=== PATIENT | female | born 1935 | race Caucasian/White ===

== ENCOUNTER 2017-12-07 16:06 | Emergency (ER) | payer MEDICARE, OTHER ==
[~2017-12-07] VITALS: Ht 167.6 cm; Wt 95.3 kg
[2017-12-07] MEDS ORDERED: HYDRALAZINE HCL 20 MG/ML VIAL IV STA (16:52)
[2017-12-07 16:53] LABS: BASOPHILS # (AUTO) 0.1 (0.0-0.1); BASOPHILS % 0.5 % (0.0-1.0); EOSINOPHILS # (AUTO) 0.1 (0.0-0.4); EOSINOPHILS % 1.1 % (0.0-6.0); HEMATOCRIT 36.6 % (34.2-44.1); HEMOGLOBIN 11.9 g/dL (12.0-16.0); LYMPHOCYTES # (AUTO) 2.7 (1.0-3.2); LYMPHOCYTES % 26.3 % (18.0-39.1); MEAN CORPUSCULAR HEMOGLOBIN 29.1 pg (28-32); MEAN CORPUSCULAR HGB CONC 32.5 g/dL (31-35); MEAN CORPUSCULAR VOLUME 89.5 fL (81-99); MONOCYTES # (AUTO) 0.8 (0.2-0.8); NEUTROPHILS # (AUTO) 6.5 (2.1-6.9); NEUTROPHILS % 63.5 % (38.7-80.0); PLATELET COUNT 329 x10e3/uL (140-360); RED BLOOD COUNT 4.09 x10e6/uL (3.6-5.1); RED CELL DISTRIBUTION WIDTH 15.3 % (11.7-14.4)
[2017-12-07] MEDS ORDERED: SODIUM CHLORIDE 0.9% 500ML 500 ML IV ONE (17:00)
[2017-12-07 17:06] LABS: ALBUMIN 3.8 g/dL (3.5-5.0); ANION GAP 12.5 mmol/L (8-16); CALCIUM 10.3 mg/dL (8.4-10.2); CREATININE, SERUM 1.05 mg/dL (0.57-1.11); POTASSIUM 3.5 mmol/L (3.5-5.1)
[2017-12-07 17:13] LABS: CREATINE KINASE MB 2.5 ng/mL (0-5.0)
--- NOTE | 2017-12-07 18:32 | Diagnostic Imaging Report ---
PROCEDURE: A single AP view of the chest. COMPARISON: None. INDICATIONS: PALPITATIONS FINDINGS: Lines/tubes: Left upper chest dual-lead cardiac device, with lead distal tips projecting in the right atrium and right ventricle.. Lungs: The grossly Pleura: There is no pleural effusion or pneumothorax. Heart and mediastinum: Cardiac silhouette is unremarkable. Pulmonary vasculature is normal. Bones: No acute bony abnormality. IMPRESSION: 1. No acute cardiopulmonary abnormalities. Yaya Romero M.D. Dictated by: Yaya Romero M.D. on 12/07/2017 at 18:35 Electronically approved by: Yaya Romero M.D. on 12/07/2017 at 18:35
== END 2017-12-07 20:17 | disposition home or self-care (01) ==
LOC: ER 16:06
DX: R00.2 Palpitations (principal)
CPT/HCPCS: 36415; 71045; 80053; 82550; 82553; 83880; 84484; 85025; 93005; 99284; J0360; J7040

== ENCOUNTER → 2017-12-27 | Outpatient (CLI) | payer MEDICARE, OTHER ==
[2017-12-27 13:14] LABS: BASOPHILS % 0.4 % (0.0-1.0); EOSINOPHILS # (AUTO) 0.1 (0.0-0.4); HEMATOCRIT 32.8 % (34.2-44.1); HEMOGLOBIN 10.4 g/dL (12.0-16.0); LYMPHOCYTES # (AUTO) 2.7 (1.0-3.2); LYMPHOCYTES % 25.4 % (18.0-39.1); MEAN CORPUSCULAR HEMOGLOBIN 29.1 pg (28-32); MEAN CORPUSCULAR HGB CONC 31.7 g/dL (31-35); MEAN CORPUSCULAR VOLUME 91.9 fL (81-99); MONOCYTES # (AUTO) 0.9 (0.2-0.8); MONOCYTES % 8.8 % (4.4-11.3); NEUTROPHILS # (AUTO) 6.7 (2.1-6.9); NEUTROPHILS % 63.9 % (38.7-80.0); PLATELET COUNT 302 x10e3/uL (140-360); RED BLOOD COUNT 3.57 x10e6/uL (3.6-5.1); RED CELL DISTRIBUTION WIDTH 15.1 % (11.7-14.4)
[2017-12-27 13:27] LABS: INR 1.04; PROTHROMBIN TIME 12.8 seconds (11.9-14.5)
[2017-12-27 13:33] LABS: ALBUMIN 3.5 g/dL (3.5-5.0); ALBUMIN/GLOBULIN RATIO 0.9 (0.8-2.0); ANION GAP 12.9 mmol/L (8-16); CALCIUM 9.2 mg/dL (8.4-10.2); CREATININE, SERUM 1.01 mg/dL (0.57-1.11); POTASSIUM 3.9 mmol/L (3.5-5.1)
== END | disposition home or self-care (01) ==
LOC: RAD 12:43
PROVIDERS: ATTEND Family Medicine
DX: R60.0 Localized edema (principal); L03.119 Cellulitis of unspecified part of limb
CPT/HCPCS: 36415; 80053; 85025; 85610; 93971

== ENCOUNTER 2018-02-25 15:49 | Observation (INO) | payer MEDICARE, OTHER ==
[~2018-02-25] VITALS: Ht 167.6 cm; Wt 95.3 kg
[2018-02-25] MEDS ORDERED: METOPROLOL SUCC50 MG PO (16:27)
[2018-02-25] MEDS ORDERED: LOSARTAN-HCTZ1 EAC1 PO (16:29)
[2018-02-25] MEDS ORDERED: LASIX40 MG PO (16:29)
[2018-02-25] MEDS ORDERED: POTASSIUM CHLO20 ME1 PO (16:29)
[2018-02-25] MEDS ORDERED: ASPIRIN ENTERI325 MG PO (16:29)
[2018-02-25 16:59] LABS: BASOPHILS % 0.4 % (0.0-1.0); EOSINOPHILS # (AUTO) 0.1 (0.0-0.4); HEMATOCRIT 35.4 % (34.2-44.1); HEMOGLOBIN 11.4 g/dL (12.0-16.0); LYMPHOCYTES # (AUTO) 2.5 (1.0-3.2); LYMPHOCYTES % 24.4 % (18.0-39.1); MEAN CORPUSCULAR HEMOGLOBIN 29.2 pg (28-32); MEAN CORPUSCULAR HGB CONC 32.2 g/dL (31-35); MEAN CORPUSCULAR VOLUME 90.8 fL (81-99); MONOCYTES # (AUTO) 0.8 (0.2-0.8); MONOCYTES % 7.3 % (4.4-11.3); NEUTROPHILS # (AUTO) 6.9 (2.1-6.9); NEUTROPHILS % 66.3 % (38.7-80.0); PLATELET COUNT 370 x10e3/uL (140-360); RED CELL DISTRIBUTION WIDTH 13.9 % (11.7-14.4)
[2018-02-25 17:05] LABS: INR 0.97; PARTIAL THROMBOPLASTIN TIME 29.6 seconds (23.8-35.5); PROTHROMBIN TIME 12.1 seconds (11.9-14.5)
[2018-02-25 17:14] LABS: ALBUMIN 3.6 g/dL (3.5-5.0); ALBUMIN/GLOBULIN RATIO 0.9 (0.8-2.0); ANION GAP 15.4 mmol/L (8-16); CALCIUM 9.7 mg/dL (8.4-10.2); CREATININE, SERUM 0.99 mg/dL (0.57-1.11); POTASSIUM 3.4 mmol/L (3.5-5.1)
[2018-02-25 17:20] LABS: CREATINE KINASE MB 2.3 ng/mL (0-5.0)
--- NOTE | 2018-02-25 17:21 | Diagnostic Imaging Report ---
EXAMINATION: CHEST 2 VIEWS INDICATION: Tachycardia COMPARISON: Chest x-ray 12/07/2017 FINDINGS: PA and lateral views TUBES and LINES: Pacemaker wires terminate in the right atrium and right ventricle and are stable in position. Pacemaker battery pack in the left chest wall is stable in orientation LUNGS: The lungs are diffusely hyperinflated consistent with COPD. There is no evidence of mass, pneumonia or pulmonary edema. PLEURA: No pleural effusion or pneumothorax. Mild eventration of the right diaphragm is stable. HEART AND MEDIASTINUM: The heart is mildly enlarged but stable. The aorta is ectatic. BONES AND SOFT TISSUES: Degenerative changes of the spine are stable. No compression deformities. No focal osseous lesions. Soft tissues are unremarkable. UPPER ABDOMEN: No free air under the diaphragm. IMPRESSION: Stable pulmonary hyperinflation suggestive of COPD. Stable cardiomegaly. No vascular congestion. Signed by: Dr. Glory Mauricio MD on 02/25/2018 5:18 PM
[2018-02-25] MEDS ORDERED: ASPIRIN 81 MG CHEW TAB PO ONE (17:30)
[2018-02-25] MEDS ORDERED: LABETALOL HCL 5 MG/ML 20ML VIAL IV STA ×2 (17:43→18:32)
[2018-02-26 01:46] LABS: CREATINE KINASE MB 1.7 ng/mL (0-5.0)
[2018-02-26 05:58] LABS: CREATINE KINASE MB 1.5 ng/mL (0-5.0)
[2018-02-26 06:14] LABS: CHOL/HDL RATIO 4.2 (3.0-3.6)
[2018-02-26 07:53] VITALS: BP 155/69
[2018-02-26 08:16] VITALS: BP 155/69
[2018-02-26 08:37] LABS: ALANINE AMINOTRANSFERASE 13 IU/L (0-55); ALBUMIN 2.9 g/dL (3.5-5.0); ALKALINE PHOSPHATASE 75 IU/L (40-150); ANION GAP 13.2 mmol/L (8-16); BLOOD UREA NITROGEN 21 mg/dL (7-26); BUN/CREATININE RATIO 24 (6-25); CALCIUM 8.6 mg/dL (8.4-10.2); CARBON DIOXIDE 26 mmol/L (22-29); CHLORIDE 99 mmol/L (98-107); CREATININE, SERUM 0.86 mg/dL (0.57-1.11); EST GLOMERULAR FILTRATION RATE > 60 ML/MIN (60-); GLUCOSE 101 mg/dL (74-118); POTASSIUM 3.2 mmol/L (3.5-5.1); SODIUM 135 mmol/L (136-145)
[2018-02-26 08:41] LABS: CLARITY,URINE CLEAR (CLEAR); COLOR,URINE YELLOW (YELLOW)
[2018-02-26 08:42] LABS: BILIRUBIN,URINE NEGATIVE (NEGATIVE); KETONES,URINE NEGATIVE (NEGATIVE); LEUKOCYTE ESTERASE ,URINE NEGATIVE (NEGATIVE); NITRITE,URINE NEGATIVE (NEGATIVE); PROTEIN,URINE DIPSTICK TRACE (NEGATIVE); URINE UROBILINOGEN 0.2 mg/dL (0.2 - 1)
[2018-02-26 08:50] VITALS: BP 155/69
[2018-02-26 08:50] LABS: BACTERIA,URINE RARE /HPF; EPITHELIAL CELLS,URINE RARE /LPF; RBC,URINE 0-5 /HPF (0-5); WBC,URINE (MAN) 0-5 /HPF (0-5)
[2018-02-26 08:58] LABS: THYROID STIMULATING HORMONE 2.266 uIU/mL (0.350-4.940)
[2018-02-26] MEDS ORDERED: METOPROLOL SUCC25 MG (08:58)
[2018-02-26] MEDS ORDERED: METOPROLOL SUCCINATE 25 MG TAB XL PO SCH (09:00)
[2018-02-26] MEDS ORDERED: POTASSIUM CHLORIDE 20 MEQ TAB CR PO SCH (09:00)
[2018-02-26] MEDS ORDERED: FUROSEMIDE 40 MG TAB PO SCH (09:00)
[2018-02-26] MEDS ORDERED: ASPIRIN 325 MG TAB EC PO SCH (09:00)
[2018-02-26] MEDS ORDERED: POTASSIUM CHLORIDE 20 MEQ TAB CR PO ONE (09:30)
--- NOTE | 2018-02-26 09:31 | Consultation ---
DATE OF CONSULTATION: February 26, 2018 REASON FOR CONSULTATION: Chest pain. HPI: This is a pleasant, 83-year-old female who presented with palpitations. She stated she got out of the shower and was sitting down drying her hair and suddenly she started feeling missed beats, palpitations, dizziness and weakness. She stated that she took her beta wilmar with no relief, and so she decided to come to the emergency room for evaluation. She has a history of CAD with permanent pacemaker and she follows up with a special education tutor in the medical center. She also complained of chest pain on a scale of 4 out of 10 with no radiation. Troponin was negative. EKG showed sinus rhythm with no ST abnormalities. PAST MEDICAL HISTORY: CHF, atrial fibrillation, hypertension and CAD. PAST SURGICAL HISTORY: Permanent pacemaker placement. FAMILY HISTORY: Noncontributory. SOCIAL HISTORY: She lives at home with her . No smoking, no drinking. MEDICATIONS: She was on aspirin, Lasix, losartan with hydrochlorothiazide and metoprolol at home. ALLERGIES: SHE IS NOT ALLERGIC TO ANY MEDICATIONS. REVIEW OF SYSTEMS: Negative except those mentioned above. She was positive for palpitations. PHYSICAL EXAMINATION VITAL SIGNS: Temperature 97, heart rate 60, blood pressure 155/69, respirations 18, oxygen saturation 97% on room air. GENERAL: She is awake, alert and oriented times 3. HEENT: Mucous membrane moist. NECK: Supple. LUNGS: Clear to auscultation. CARDIOVASCULAR: S1 and S2 present. ABDOMEN: Soft. NEUROLOGIC: Intact. EXTREMITIES: With no edema. LABORATORY DATA: Sodium 134, potassium 3.4, chloride 96, CO2 26, BUN 25, creatinine 0.99, glucose . White blood cell 10.3, hemoglobin 11.4, hematocrit 35.4, platelets 370,000, PT 12.1, PTT 29.6, and INR 0.97. IMPRESSION 1. Chest pain. 2. Palpitations. 3. Coronary artery disease with permanent pacemaker. 4. History of atrial fibrillation. 5. Hypertension. PLAN: Troponin was negative x3. She stated she had a cardiac stress test with her special education tutor and everything was normal. Will go ahead and get an echocardiogram to assess the LV and valve function. Potassium was low and has been replaced. Will go ahead and check TSH and get a UA. Will continue her beta wilmar. The palpitations, she stated, resolved. She had a chest x-ray that was showing pulmonary hyperinflation suggestive of COPD. Further cardiac workup pending clinical cause. Thank you for this consultation. Dictated by Patricia Izquierdo NP Job#: [id number] SHANTA
[2018-02-26] MEDS ORDERED: HYDRALAZINE HCL 20 MG/ML VIAL IV ONE (11:00)
[2018-02-26 11:57] VITALS: BP 160/63
[2018-02-26 12:58] VITALS: BP 139/64
--- OUTSIDE RECORDS SUMMARY | 2018-04-14 02:48 | XMS REPORT ---
Author Author [facility] Address Unknown Phone Unavailable Care Team Providers Care Automotive Warranty Administrator Name Role Phone ILEANA JOHNSON Unavailable Unavailable MOLINA JUNE Unavailable Unavailable Problems This patient has no known problems. Allergies, Adverse Reactions, Alerts This patient has no known allergies or adverse reactions. Medications This patient has no known medications. Results Test Description Test Time Test Comments Text Results Atomic Results Result Comments CHEST 2 VIEWS 2018-02-25 17:15:00 [place] [address] Patient Name: JESSIE ERVIN MR #: [id number] : 1935 Age/Sex: 82/F Req #: [id number] Adm Physician: Ordered by: ILEANA JOHNSON MD Report #: [id number] Location: ER Room/Bed: Procedure: [id number] DX/CHEST 2 VIEWS Exam Date: Exam Time: REPORT STATUS: Signed EXAMINATION: CHEST 2 VIEWS INDICATION: Tachycardia COMPARISON: Chest x-ray 12/07/2017 FINDINGS: PA and lateral views TUBES and LINES: Pacemaker wires terminate in the right atrium and right ventricle and are stable in position. Pacemaker battery pack in the left chest wall is stable in orientation LUNGS: The lungs are diffusely hyperinflated consistent with COPD. There is no evidence of mass, pneumonia or pulmonary edema. PLEURA: No pleural effusion or pneumothorax. Mild eventration of the right diaphragm is stable. HEART AND MEDIASTINUM: The heart is mildly enlarged but stable. The aorta is ectatic. BONES AND SOFT TISSUES: Degenerative changes of the spine are stable. No compression deformities. No focal osseous lesions. Soft tissues are unremarkable. UPPER ABDOMEN: No free air under the diaphragm. IMPRESSION: Stable pulmonary hyperinflation suggestive of COPD. Stable cardiomegaly. No vascular congestion. Signed by: Dr. Lisbeth Mauricio MD on 02/25/2018 5:18 PM Dictated By: LISBETH MAURICIO MD 17 Transcribed By: MONICA on 02/25/181717 COPY TO: ILEANA JOHNSON MD CHEST SINGLE (PORTABLE) [place] [address] Patient Name: JESSIE ERVIN MR #: [id number] : 1935 Age/Sex: 82/F Req #: [id number] Adm Physician: Ordered by: MOLINA JUNE MD Report #: [id number] Location: ER Room/Bed: Procedure: [id number] DX/CHEST SINGLE (PORTABLE) Exam Date: 12/07/17 Exam Time: 1750 REPORT STATUS: Signed PROCEDURE: A single AP view of the chest. COMPARISON: None. INDICATIONS: PALPITATIONS FINDINGS: Lines/tubes: Left upper chest dual-lead cardiac device, with lead distal tips projecting in the right atrium and right ventricle.. Lungs: The grossly Pleura: There is no pleural effusion or pneumothorax. Heart and mediastinum: Cardiac silhouette is unremarkable. Pulmonary vasculature is normal. Bones: No acute bony abnormality. IMPRESSION: 1. No acute cardiopulmonary abnormalities. Dianna Romero M.D. Dictated by: Dianna Romero M.D. on 12/07/2017 at 18:35 Electronically approved by: Dianna Romero M.D. on 12/07/2017 at 18:35 Dictated By: DIANNA ROMERO MD 34 Transcribed By: MAYI on 12/07/171834 COPY TO: MOLINA JUNE MD
--- OUTSIDE RECORDS SUMMARY | 2018-04-14 02:48 | XMS REPORT | Continuity of Care Document ---
Author Author [facility] Organization [facility] Address [address] [place] [address] Phone Unavailable Care Team Providers Care Progressive Die Maker Name Role Phone IGNACIO GALVAN MD PCP Insurance Providers Guarantor Alistair Zambranodonald Address [address] [place] [address] Email PTDECLINED Payer [employer] Pos Policy Number [id number] Subscriber's Name Comfort Zambrano Relationship 01 Group Number [id number] Group Name RETIRED Effective Date 04 Payer Medicare A & B Policy Number [id number] Subscriber's Name Jessie Zambrano Relationship 18 Self / Same As Patient Group Number NA Group Name UNEMPLOYED Effective Date 00 Advance Directives Directive Response Recorded Date/Time Does the patient have an advance directive? Yes 12/07/17 5:19pm If yes, is advance directive on file with [facility]? No 12/17/08 8:08pm If not on file with [facility] will patient provide a copy? Yes 12/07/17 5:19pm Do you have a Directive to Physician? No 12/07/17 5:19pm Do you have a Medical Power of Anesthesia Tech? Yes 12/07/17 5:19pm Do you have an out of hospital Do Not Resuscitate Order? No 12/07/17 5:19pm Do you have any special needs we should be aware of? No 12/07/17 5:19pm Do you have a support person here with you today? Yes 12/07/17 5:19pm Did patient receive Notice of Privacy Practices? Yes 12/07/17 5:19pm Did patient receive patient rights and responsibilities? Yes 12/07/17 5:19pm Problems No problem information available. Medications No medication information available. Social History Smoking Status Start Date Stop Date Never Smoker Hospital Discharge Instructions No hospital discharge instruction information available. Plan of Care Discharge Date 12/07/17 8:17pm Disposition HOME, SELF-CARE Condition at Discharge Stable Instructions/Education Provided Hypertension Forms Provided Work/School Excuse Prescriptions See Medication Section Referrals IGNACIO GALVAN MD Order Date: Call for an appointment Address: [address] [place] [id number] Additional Instructions/Education DC HOME FOLLOW UP WITH PCP/MOTOR AND GENERATOR BRUSH MAKER IN 2 DAYS TAKE MEDS DIRECTED RETURN TO THE ER WITH ANY EMERGENT CONDITIONS Functional Status No functional status information available. Allergies, Adverse Reactions, Alerts No allergy information available. Immunizations No immunization information available. Vital Signs Acute Vital Signs Vital Response Date/Time Height 5 ft 6 in 12/07/2017 4:44pm Weight 210 lb 12/07/2017 4:44pm Body Mass Index 33.9 kg/m^2 12/07/2017 4:44pm Results Laboratory Results Test Name Result Units Flags Reference Collection Date/Time Result Date/ Time Comments White Blood Count 10.20 x10e3/uL 4.8-10.8 12/07/2017 4:16pm 12/07/2017 4:54pm Red Blood Count 4.09 x10e6/uL 3.6-5.1 12/07/2017 4:16pm 12/07/2017 4: 54pm Hemoglobin 11.9 g/dL L 12.0-16.0 12/07/2017 4:16pm 12/07/2017 4:54pm Hematocrit 36.6 % 34.2-44.1 12/07/2017 4:16pm 12/07/2017 4:54pm Mean Corpuscular Volume 89.5 fL 81-99 12/07/2017 4:16pm 12/07/2017 4: 54pm Mean Corpuscular Hemoglobin 29.1 pg 28-32 12/07/2017 4:16pm 12/07/2017 4:54pm Mean Corpuscular Hemoglobin Concent 32.5 g/dL 31-35 12/07/2017 4:16pm 12/07/2017 4:54pm Red Cell Distribution Width 15.3 % H 11.7-14.4 12/07/2017 4:16pm 2017 4:54pm Platelet Count 329 x10e3/uL 140-360 12/07/2017 4:16pm 12/07/2017 4: 54pm Neutrophils (%) (Auto) 63.5 % 38.7-80.0 12/07/2017 4:16pm 12/07/2017 4: 54pm Lymphocytes (%) (Auto) 26.3 % 18.0-39.1 12/07/2017 4:1612/07/2017 4: 54pm Monocytes (%) (Auto) 8.0 % 4.4-11.3 12/07/2017 4:1612/07/2017 4: 54pm Eosinophils (%) (Auto) 1.1 % 0.0-6.0 12/07/2017 4:1612/07/2017 4: 54pm Basophils (%) (Auto) 0.5 % 0.0-1.0 12/07/2017 4:1612/07/2017 4:54pm IM GRANULOCYTES % 0.6 % 0.0-1.0 12/07/2017 4:1612/07/2017 4:54pm Neutrophils # (Auto) 6.5 2.1-6.9 12/07/2017 4:1612/07/2017 4:54pm Lymphocytes # (Auto) 2.7 1.0-3.2 12/07/2017 4:1612/07/2017 4:54pm Monocytes # (Auto) 0.8 0.2-0.8 12/07/2017 4:1612/07/2017 4:54pm Eosinophils # (Auto) 0.1 0.0-0.4 12/07/2017 4:1612/07/2017 4:54pm Basophils # (Auto) 0.1 0.0-0.1 12/07/2017 4:16pm 12/07/2017 4:54pm Absolute Immature Granulocyte (auto 0.06 x10e3/uL 0-0.1 12/07/2017 4: 16pm 12/07/2017 4:54pm Sodium Level 137 mmol/L 136-145 12/07/2017 4:16pm 12/07/2017 5:10pm Potassium Level 3.5 mmol/L 3.5-5.1 12/07/2017 4:16pm 12/07/2017 5:10pm Chloride Level 97 mmol/L L 98-107 12/07/2017 4:16pm 12/07/2017 5:10pm Carbon Dioxide Level 31 mmol/L H 22-12/07/2017 4:16pm 12/07/2017 5: 10pm Anion Gap 12.5 mmol/L 8-16 12/07/2017 4:16pm 12/07/2017 5:10pm Blood Urea Nitrogen 25 mg/dL 7-12/07/2017 4:16pm 12/07/2017 5:10pm Creatinine 1.05 mg/dL 0.57-1.11 12/07/2017 4:16pm 12/07/2017 5:10pm BUN/Creatinine Ratio 24 6-25 12/07/2017 4:16pm 12/07/2017 5:10pm Estimat Glomerular Filtration Rate 50 ML/MIN L 60- 12/07/2017 4:16pm 5:10pm Ranges were taken from the National Kidney Disease Education Program and the National Kidney Foundation literature. Reference ranges: 60 or greater: Normal 16-59 (for 3 consecutive months): Chronic kidney disease 15 or less: Kidney failure Glucose Level 112 mg/dL 74-118 12/07/2017 4:16pm 12/07/2017 5:10pm Calcium Level 10.3 mg/dL H 8.4-10.2 12/07/2017 4:16pm 12/07/2017 5:10pm Total Bilirubin 0.3 mg/dL 0.2-1.2 12/07/2017 4:16pm 12/07/2017 5:10pm Aspartate Amino Transf (AST/SGOT) 23 IU/L 5-34 12/07/2017 4:16pm 2017 5:10pm Alanine Aminotransferase (ALT/SGPT) 19 IU/L 0-55 12/07/2017 4:16pm 5:10pm Total Protein 7.8 g/dL 6.5-8.1 12/07/2017 4:16pm 12/07/2017 5:10pm Albumin 3.8 g/dL 3.5-5.0 12/07/2017 4:16pm 12/07/2017 5:10pm Globulin 4.0 g/dL H 2.3-3.5 12/07/2017 4:16pm 12/07/2017 5:10pm Albumin/Globulin Ratio 1.0 0.8-2.0 12/07/2017 4:16pm 12/07/2017 5: 10pm Alkaline Phosphatase 96 IU/L 40-150 12/07/2017 4:16pm 12/07/2017 5: 10pm B-Type Natriuretic Peptide 147.1 pg/mL H 0-100 12/07/2017 4:16pm 2017 5:16pm Creatine Kinase 83 IU/L 29-168 12/07/2017 4:16pm 12/07/2017 5:10pm Creatine Kinase MB 2.50 ng/mL 0-5.0 12/07/2017 4:16pm 12/07/2017 5: 14pm Troponin I 0.009 ng/mL 0-0.300 12/07/2017 4:16pm 12/07/2017 5:14pm Procedures No procedure information available. Encounters Encounter Location Arrival/Admit Date Discharge/Depart Date Attending Provider Departed Emergency Room [facility] 12/07/17 4:06pm 8:17pm MOLINA JUNE MD
--- OUTSIDE RECORDS SUMMARY | 2018-04-14 02:48 | XMS REPORT | Clinical Summary ---
Author Author [facility] Organization [facility] Address Unknown Phone Unavailable Care Team Providers Care Small Products Assembler Name Role Phone Asked, Pcp PCP Unavailable Allergies No Known Allergies Current Medications Prescription Sig. Disp. Refills Start End Date Status Date potassium chloride 11/04/19 Active (K-DUR) 20 MEQ CR tablet 17 furosemide (LASIX) 40 mg 11/04/19 Active tablet 17 cholecalciferol, vitamin Take by mouth Active D3, (VITAMIN D3) 1,000 unit tablet biotin 10,000 mcg capsule Take by mouth Active Active Problems Problem Noted Date Colon polyp Diverticulosis Family History Relation Name Status Comments Father Mother Social History Tobacco Use Types Packs/Day Years Used Date Never Smoker Alcohol Use Drinks/Week oz/Week Comments Yes Sex Assigned at Date Recorded Not on file Last Filed Vital Signs Not on file Plan of Treatment Health Maintenance Due Date Last Done Comments SHINGRIX VACCINE (#1) 1985 ZOSTER VACCINE 1995 PNEUMOCOCCAL 2000 POLYSACCHARIDE VACCINE AGE 65 AND OVER PNEUMOCOCCAL-13 2000 INFLUENZA VACCINE 02/09/2018 Results Not on fileafter 02/24/2017 Insurance Payer Benefit Subscriber ID Type Phone Address Plan / Group MEDICARE MEDICARE xxxxxxxxxx Medicare [place], [place] PART A AND B AETNA AETNA xxxxxxxxxx HMO HMO,POS,EP O, [facility]
--- OUTSIDE RECORDS SUMMARY | 2018-04-14 02:51 | XMS REPORT | Clinical Summary ---
Author Author [facility] Organization [facility] Address Unknown Phone Unavailable Care Team Providers Care Master Hearth Technician Name Role Phone Asked, Pcp PCP Unavailable [...]
--- OUTSIDE RECORDS SUMMARY | 2018-04-14 04:02 | XMS REPORT | Continuity of Care Document ---
Author Author [facility] Organization [facility] Address [address] [place] [address] Phone Unavailable Care Team Providers Care Escort Service Attendant Name Role Phone IGNACIO GALVAN MD PCP Insurance Providers Guarantor Juan ManuelAlistairdonald Address [address] [place] [address] Email PTDECLINED Payer Aetna Pos Policy Number [id number] Subscriber's Name Comfort Zambrano Relationship 01 Group Number [id number] Group Name RETIRED Effective Date 04 Payer Medicare A & B Policy Number [id number] Subscriber's Name Jessie Zambrano Relationship 18 Self / Same As Patient Group Number NA Group Name UNEMPLOYED Effective Date 00 Advance Directives Directive Response Recorded Date/Time Does the patient have an advance directive? Yes 02/26/18 8:50am If yes, is advance directive on file with [facility]? No 02/26/18 8:50am If not on file with [facility] will patient provide a copy? Yes 02/26/18 8:50am Do you have a Directive to Physician? No 02/25/18 5:56pm Do you have a Medical Power of [place]? Yes 02/25/18 5:56pm Do you have an out of hospital Do Not Resuscitate Order? No 02/25/18 5:56pm Do you have any special needs we should be aware of? No 02/25/18 5:56pm Do you have a support person here with you today? Yes 02/25/18 5:56pm Did patient receive Notice of Privacy Practices? Yes 02/25/18 5:56pm Did patient receive patient rights and responsibilities? Yes 02/25/18 5:56pm Problems Medical Problem Onset Date Status Chest pain Unknown Medications Current Home Medications Medication Dose Units Route Directions Days Qty Instructions Start Date Aspirin (Aspirin Enteric Coated) 325 Mg Tabec 325 Mg Oral Daily 30 Tab Furosemide (Lasix) 40 Mg Tablet 40 Mg Oral Daily 30 Tab Losartan/Hydrochlorothiazide (Losartan-Hctz 100-25 Mg Tab) 1 Each Tablet 1 Tab Oral Daily Metoprolol Succinate 25 Mg Tab.er.24h Potassium Chloride 20 Meq Tab.er.prt 1 Tab Oral Daily Past Home Medications Medication Directions Ordered Status Metoprolol Succinate 50 Mg Tab.er.24h, 100 Mg Oral Daily Discontinued Social History Smoking Status Start Date Stop Date Unknown if ever smoked Hospital Discharge Instructions No hospital discharge instruction information available. Plan of Care Discharge Date 02/26/18 4:00pm Disposition ADMITTED Condition at Discharge Stable Instructions/Education Provided Hypertension Forms Provided Work/School Excuse Prescriptions See Medication Section Functional Status Query Response Date Recorded Assistive Devices None February 26, 2018 8:50am Ambulation Ability Independent February 26, 2018 8:50am Toileting Ability Independent February 26, 2018 8:50am Allergies, Adverse Reactions, Alerts No known allergies. Immunizations No immunization information available. Vital Signs Acute Vital Signs Vital Response Date/Time Temperature (Fahrenheit) 97.6 degrees F (97.6 - 99.5) 02/26/2018 12:58pm Pulse Pulse Rate (adult) 60 bpm (60 - 90) 02/26/2018 12:58pm Respiratory Rate 18 bpm (12 - 24) 02/26/2018 12:58pm Blood Pressure 139/64 mm Hg 02/26/2018 12:58pm Height 5 ft 6 in 02/25/2018 4:05pm Weight 210 lb 02/25/2018 4:05pm Body Mass Index 33.9 kg/m^2 02/26/2018 8:50am Results Laboratory Results Test Name Result Units Flags Reference Collection Date/Time Result Date/ Time Comments B-Type Natriuretic Peptide 147.1 pg/mL H 0-100 12/07/2017 4:16pm 2017 5:16pm White Blood Count 10.39 x10e3/uL 4.8-10.8 02/25/2018 4:36pm 02/25/2018 5:05pm Red Blood Count 3.90 x10e6/uL 3.6-5.1 02/25/2018 4:36pm 02/25/2018 5: 05pm Hemoglobin 11.4 g/dL L 12.0-16.0 02/25/2018 4:36pm 02/25/2018 5:05pm Hematocrit 35.4 % 34.2-44.1 02/25/2018 4:36pm 02/25/2018 5:05pm Mean Corpuscular Volume 90.8 fL 81-99 02/25/2018 4:36pm 02/25/2018 5: 05pm Mean Corpuscular Hemoglobin 29.2 pg 28-32 02/25/2018 4:36pm 02/25/2018 5:05pm Mean Corpuscular Hemoglobin Concent 32.2 g/dL 31-35 02/25/2018 4:36pm 02/25/2018 5:05pm Red Cell Distribution Width 13.9 % 11.7-14.4 02/25/2018 4:36pm 2017 5:05pm Platelet Count 370 x10e3/uL H 140-360 02/25/2018 4:36pm 02/25/2018 5: 05pm Neutrophils (%) (Auto) 66.3 % 38.7-80.0 02/25/2018 4:36pm 02/25/2018 5: 05pm Lymphocytes (%) (Auto) 24.4 % 18.0-39.1 02/25/2018 4:36pm 02/25/2018 5: 05pm Monocytes (%) (Auto) 7.3 % 4.4-11.3 02/25/2018 4:36pm 02/25/2018 5: 05pm Eosinophils (%) (Auto) 1.0 % 0.0-6.0 02/25/2018 4:36pm 02/25/2018 5: 05pm Basophils (%) (Auto) 0.4 % 0.0-1.0 02/25/2018 4:36pm 02/25/2018 5:05pm IM GRANULOCYTES % 0.6 % 0.0-1.0 02/25/2018 4:36pm 02/25/2018 5:05pm Neutrophils # (Auto) 6.9 2.1-6.9 02/25/2018 4:36pm 02/25/2018 5:05pm Lymphocytes # (Auto) 2.5 1.0-3.2 02/25/2018 4:36pm 02/25/2018 5:05pm Monocytes # (Auto) 0.8 0.2-0.8 02/25/2018 4:36pm 02/25/2018 5:05pm Eosinophils # (Auto) 0.1 0.0-0.4 02/25/2018 4:36pm 02/25/2018 5:05pm Basophils # (Auto) 0.0 0.0-0.1 02/25/2018 4:36pm 02/25/2018 5:05pm Absolute Immature Granulocyte (auto 0.06 x10e3/uL 0-0.1 02/25/2018 4: 36pm 02/25/2018 5:05pm Prothrombin Time 12.1 seconds 11.9-14.5 02/25/2018 4:36pm 02/25/2018 5: 05pm Prothromb Time International Ratio 0.97 02/25/2018 4:36pm 2017 5:05pm Oral Anticoagulant Therapy INR Values: 1. Low Intensity Therapy 1.5 - 2.0 2. Moderate Intensity Therapy 2.0 - 3.0 3. High Intensity Therapy(1) 2.5 - 3.5 4. High Intensity Therapy(2) 3.0 - 4.0 5. Panic Value INR > 5.0 Activated Partial Thromboplast Time 29.6 seconds 23.8-35.5 02/25/2018 4: 36pm 02/25/2018 5:05pm Urine Color YELLOW YELLOW 02/25/2018 4:20pm 02/26/2018 8:42am Urine Clarity CLEAR CLEAR 02/25/2018 4:20pm 02/26/2018 8:42am Urine Specific [place] 1.010 1.010-1.025 02/25/2018 4:20pm 2017 8:42am Urine pH 6 5 - 7 02/25/2018 4:20pm 02/26/2018 8:42am Urine Leukocyte Esterase NEGATIVE NEGATIVE 02/25/2018 4:20pm 2017 8:42am Urine Nitrite NEGATIVE NEGATIVE 02/25/2018 4:20pm 02/26/2018 8:42am Urine Protein TRACE H NEGATIVE 02/25/2018 4:20pm 02/26/2018 8:42am Urine Glucose (UA) NEGATIVE NEGATIVE 02/25/2018 4:20pm 02/26/2018 8: 42am Urine Ketones NEGATIVE NEGATIVE 02/25/2018 4:20pm 02/26/2018 8:42am Urine Urobilinogen 0.2 mg/dL 0.2 - 1 02/25/2018 4:20pm 02/26/2018 8: 42am Urine Bilirubin NEGATIVE NEGATIVE 02/25/2018 4:20pm 02/26/2018 8: 42am Urine Blood NEGATIVE NEGATIVE 02/25/2018 4:20pm 02/26/2018 8:50am Urine WBC 0-5 /HPF 0-5 02/25/2018 4:20pm 02/26/2018 8:50am Urine RBC 0-5 /HPF 0-5 02/25/2018 4:20pm 02/26/2018 8:50am Urine Bacteria RARE /HPF NONE 02/25/2018 4:20pm 02/26/2018 8:50am Urine Epithelial Cells RARE /LPF NONE 02/25/2018 4:20pm 02/26/2018 8: 50am Sodium Level 135 mmol/L L 136-145 02/26/2018 5:00am 02/26/2018 8:39am Potassium Level 3.2 mmol/L L 3.5-5.1 02/26/2018 5:00am 02/26/2018 8: 39am Chloride Level 99 mmol/L 98-107 02/26/2018 5:00am 02/26/2018 8:39am Carbon Dioxide Level 26 mmol/L 22-29 02/26/2018 5:00am 02/26/2018 8: 39am Anion Gap 13.2 mmol/L 8-16 02/26/2018 5:00am 02/26/2018 8:39am Blood Urea Nitrogen 21 mg/dL 7-26 02/26/2018 5:00am 02/26/2018 8:39am Creatinine 0.86 mg/dL 0.57-1.11 02/26/2018 5:00am 02/26/2018 8:39am BUN/Creatinine Ratio 24 6-25 02/26/2018 5:00am 02/26/2018 8:39am Estimat Glomerular Filtration Rate > 60 ML/MIN 60- 02/26/2018 5:00am 8:39am Ranges were taken from the National Kidney Disease Education Program and the National Kidney Foundation literature. Reference ranges: 60 or greater: Normal 16-59 (for 3 consecutive months): Chronic kidney disease 15 or less: Kidney failure Glucose Level 101 mg/dL 74-118 02/26/2018 5:00am 02/26/2018 8:39am Calcium Level 8.6 mg/dL 8.4-10.2 02/26/2018 5:00am 02/26/2018 8:39am Total Bilirubin 0.2 mg/dL 0.2-1.2 02/26/2018 5:00am 02/26/2018 8:39am Aspartate Amino Transf (AST/SGOT) 17 IU/L 5-34 02/26/2018 5:00am 2017 8:39am Alanine Aminotransferase (ALT/SGPT) 13 IU/L 0-55 02/26/2018 5:00am 8:39am Total Protein 5.8 g/dL # L 6.5-8.1 02/26/2018 5:00am 02/26/2018 8:39am Albumin 2.9 g/dL L 3.5-5.0 02/26/2018 5:00am 02/26/2018 8:39am Globulin 2.9 g/dL 2.3-3.5 02/26/2018 5:00am 02/26/2018 8:39am Albumin/Globulin Ratio 1.0 0.8-2.0 02/26/2018 5:00am 02/26/2018 8: 39am Alkaline Phosphatase 75 IU/L 40-150 02/26/2018 5:00am 02/26/2018 8: 39am Triglycerides Level 196 MG/DL H 0-149 02/26/2018 5:00am 02/26/2018 6: 18am Cholesterol Level 197 MD/DL 0-199 02/26/2018 5:00am 02/26/2018 6:18am Less than 200 mg/dL Low Risk 201 - 239 mg/dL Borderline Risk 240 mg/dl and greater High Risk LDL Cholesterol 111 MG/DL 60-130 02/26/2018 5:00am 02/26/2018 6:18am HDL Cholesterol 47 MG/DL 40-60 02/26/2018 5:00am 02/26/2018 6:18am Cholesterol/HDL Ratio 4.2 H 3.0-3.6 02/26/2018 5:00am 02/26/2018 6: 18am Creatine Kinase 81 IU/L 29-168 02/26/2018 5:00am 02/26/2018 5:55am Creatine Kinase MB 1.50 ng/mL 0-5.0 02/26/2018 5:00am 02/26/2018 6: 00am Troponin I 0.034 ng/mL 0-0.300 02/26/2018 5:00am 02/26/2018 6:00am Free Thyroxine Index 2.2016 1.4-3.8 02/26/2018 5:00am 02/26/2018 9: 12am Thyroxine (T4) 7.10 ug/dL 4.5-10.9 02/26/2018 5:00am 02/26/2018 9:12am Our current method for Total T4 is not recommended for use as the only marker for evaluating patients for thyroid disorders. Triiodothyronine (T3) Uptake 31.01 % 22.5-37.0 02/26/2018 5:00am 2017 9:12am Thyroid Stimulating Hormone (TSH) 2.266 uIU/mL 0.350-4.940 02/26/2018 5: 00am 02/26/2018 9:12am Procedures Procedure Status Date Provider(s) X-ray of chest, two views Active 02/25/18 ILEANA JOHNSON MD Encounters Encounter Location Arrival/Admit Date Discharge/Depart Date Attending Provider Departed Emergency Room [facility] 02/25/18 3:49pm 4:00pm RADHA ALFRED MD Registered Clinic [facility] 12/27/17 12:43pm IGNACIO GALVAN MD Departed Emergency Room [facility] 12/07/17 4:06pm 8:17pm MOLINA JUNE MD
--- OUTSIDE RECORDS SUMMARY | 2018-04-14 04:02 | XMS REPORT | Clinical Summary ---
Author Author [facility] Organization [place] [facility] Address Unknown Phone Unavailable Care Team Providers Care International Account Executive Name Role Phone Asked, Pcp PCP Unavailable [...] INFLUENZA VACCINE 02/09/2018 Results Not on fileafter 03/02/2017 Insurance Payer Benefit Subscriber ID Type Phone Address Plan / Group MEDICARE MEDICARE xxxxxxxxxx Medicare [place], [place] PART A AND B AETNA AETNA xxxxxxxxxx HMO HMO,POS,EP O, MC/EC
== END 2018-02-26 16:00 | disposition home or self-care (01) ==
LOC: ER 15:49 → ERHOLD 17:31 → INTOOBSV 17:31 → UNDOADMOB 18:06 → ERHOLD 18:06 → ER 02-26 16:00
PROVIDERS: ADMIT Family Medicine; ATTEND Family Medicine
DX: R00.2 Palpitations (principal); R07.2 Precordial pain; I48.91 Unspecified atrial fibrillation; I50.9 Heart failure, unspecified; Z95.0 Presence of cardiac pacemaker; I25.10 Atherosclerotic heart disease of native coronary artery without angina pectoris; I11.0 Hypertensive heart disease with heart failure; E87.6 Hypokalemia
CPT/HCPCS: 36415; 71046; 80053; 80061; 81001; 82550; 82553; 84436; 84443; 84479; 84484; 85025; 85610; 85730; 93005; 93306; 99284; G0378 ×2; J3490

== ENCOUNTER 2019-04-05 11:25 | Inpatient (IN) | payer MEDICARE, OTHER ==
[~2019-04-05] VITALS: Ht 165.1 cm; Wt 101.7 kg
[~2019-04-05 11:25] MED LIST: ASPIRIN ENTERI325 MG PO; LASIX40 MG PO; LOSARTAN-HCTZ1 EAC1 PO; METOPROLOL SUCC25 MG; METOPROLOL SUCC50 MG PO; POTASSIUM CHLO20 ME1 PO
--- OUTSIDE RECORDS SUMMARY | 2019-04-05 11:58 | XMS REPORT | Clinical Summary ---
Author Author [facility] Organization [facility] Address Unknown Phone Unavailable Care Team Providers Care Hand Packer/Packager Name Role Phone Asked, No Pcp PCP Unavailable Allergies No Known Allergies Medications End Date Status Medication Sig Dispensed Refills Start Date Active potassium chloride 0 (K-DUR) 20 MEQ CR tablet 7 Active furosemide (LASIX) 40 mg 0 tablet 7 Active cholecalciferol, vitamin Take by mouth 0 D3, (VITAMIN D3) 1,000 unit tablet Active biotin 10,000 mcg capsule Take by mouth 0 Active Problems Problem Noted Date Colon polyp Diverticulosis Family History Relation Name Status Comments Father Mother Social History Date Tobacco Use Types Packs/Day Years Used Never Smoker Drinks/Week oz/Week Comments Alcohol Use Yes Sex Assigned at Date Recorded Not on file Industry Job Start Date Occupation Not on file Not on file Not on file Travel End Travel History Travel Start No recent travel history available. Last Filed Vital Signs Not on file Plan of Treatment Health Maintenance Due Date Last Done Comments SHINGLES VACCINES (#1) 1985 65+ PNEUMOCOCCAL VACCINE 2000 (1 of 2 - PCV13) INFLUENZA VACCINE 02/09/2019 Results Not on fileafter 04/04/2018 Insurance Type Payer Benefit Subscriber ID Effective Phone Address Plan / Dates Group Medicare MEDICARE MEDICARE xxxxxxxxxx 2000- GAM[place]IEL, PART A AND Present [place] B HMO AETNA AETNA xxxxxxxxxx 1990- HMO,POS,EP Present O, MC/EC Advance Directives For more information, please contact: [phone] Patient Nut Former Explanation Type Date Recorded Advance Directives, 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
--- OUTSIDE RECORDS SUMMARY | 2019-04-05 11:58 | XMS REPORT | Summary of Care ---
Author Author [facility] Organization [facility] Address Unknown Phone Unavailable Care Team Providers Care Turn Sewer Name Role Phone System, Pcp Not In PCP Reason for Visit * Reason Comments Coronary Artery Disease f/u Encounter Details Care Team Description Date Type Department Chris Mendez MD [address] [place] [id number] [phone] Coronary Artery Disease (f/u) 04/04/2019 Office Visit [facility] at [address] [address] Allergies Comments Active Allergy Reactions Severity Noted Date Amoxicillin Rash 08/11/2016 documented as of this encounter (statuses as of 04/04/2019) Medications End Date Status Medication Sig Dispensed Refills Start Date Active aspirin 81 MG tablet Take 325 mg 0 by mouth daily. Active losartan-hydrochlorothiaz Take 1 Tab by 90 Tab 3 wilberto (HYZAAR) 100-25 MG mouth daily. 9 per tabletIndications: Essential hypertension Active metoprolol (TOPROL XL) 25 Take 1 Tab by 90 Tab 3 MG XL tabletIndications: mouth daily. 9 Coronary artery disease involving [place] coronary artery of [place] heart without angina pectoris, Essential hypertension Active potassium chloride SA Take 1 Tab by 90 Tab 3 (KLOR-CON M20) 20 MEQ mouth daily. 9 tabletIndications: Essential hypertension Active furosemide (LASIX) 40 MG Take 1 Tab by 90 Tab 3 tablet mouth daily. 9 documented as of this encounter (statuses as of 04/04/2019) Active Problems Problem Noted Date Nonrheumatic aortic valve stenosis 09/29/2018 Palpitations 12/08/2017 Chest pain 12/08/2017 Diverticulitis of sigmoid colon 08/11/2016 CAD (coronary artery disease) 12/25/2015 Pacemaker 12/25/2015 Syncope and collapse 12/25/2015 HTN (hypertension) 12/25/2015 Bradycardia 12/25/2015 Tremor, essential 12/25/2015 Aortic sclerosis 12/25/2015 documented as of this encounter (statuses as of 04/04/2019) Immunizations Name Administration Dates Next Due Influenza Hd 05/26/2017 documented as of this encounter Social History Date Tobacco Use Types Packs/Day Years Used Never Smoker Smokeless Tobacco: Never Used Drinks/Week oz/Week Comments Alcohol Use No Sex Assigned at Date Recorded Not on file Industry Job Start Date Occupation Not on file Not on file Not on file Travel End Travel History Travel Start No recent travel history available. documented as of this encounter Last Filed Vital Signs Reading Time Taken Comments Vital Sign 142/72 04/04/2019 1:47 PM CDT Blood Pressure 60 04/04/2019 1:35 PM CDT Pulse - - Temperature - - Respiratory Rate - - Oxygen Saturation - - Inhaled Oxygen Concentration 101.6 kg (224 lb) 04/04/2019 1:35 PM CDT Weight 165.1 cm (5' 5") 04/04/2019 1:35 PM CDT Height 37.28 04/04/2019 1:35 PM CDT Body Mass Index documented in this encounter Progress Notes * Chris Mendez MD - 04/04/2019 2:00 PM CDT Chief Complaint Patient presents with Coronary Artery Disease f/u History of Present Illness: This is an 83 year old female with HTN,CAD,S/P stent of LAD,syncope, s/p PPM who comes for follow upvisit. Stress Nuclear Test( 12-21-2017) : test is OK, no changes Echo ( 12-21-2017) : is OK The PM checkwas satisfactory with occasional atrial oversensing. She had an episode of SVT prior to last visit. There is clear documentation of 1 to 1 conduction.Patient had been off beta wilmar at that time. During last visit:PM Check showed multiple episodes of SVT and AT.However the t otal time was 4.2 hrs. They were > 130 short episodes. These episodes significantly decreased< 1% and patient is asymptomatic. Patient had dizziness with change of position. Review of Systems [facility] Cardiology ROS General: dizziness GI: diarrhea, constipation Skin: dryness Neurologic: tremors General: dizziness GI: diarrhea, constipation Skin: dryness Neurologic: tremors Medications: aspirin 81 MG tablet Take 325 mg by mouth daily. furosemide (LASIX) 40 MG tablet Take 1 Tab by mouth daily. losartan-hydrochlorothiazide (HYZAAR) 100-25 MG per tablet Take 1 Tab by zheng th daily. metoprolol (TOPROL XL) 25 MG XL tablet Take 1 Tab by mouth daily. (Patient t aking differently: Take 25 mg by mouth as needed.) potassium chloride SA (KLOR-CON M20) 20 MEQ tablet Take 1 Tab by mouth daily . Allergies Allergen Reactions Amoxicillin Rash Past Medical History: Diagnosis Date Hypertension Past Surgical History: Procedure Laterality Date HX PACEMAKER HX STENT/ANGIOPLASTY No family history on file. Social History Socioeconomic History Marital status: Spouse name: Not on file Number of children: Not on file Years of education: Not on file Highest education level: Not on file Occupational History Not on file Social Needs Financial resource strain: Not on file Food insecurity: Worry: Not on file Inability: Not on file Transportation needs: Medical: Not on file Non-medical: Not on file Tobacco Use Smoking status: Never Smoker Smokeless tobacco: Never Used Substance and Sexual Activity Alcohol use: No Drug use: No Sexual activity: Not on file Lifestyle Physical activity: Days per week: Not on file Minutes per session: Not on file Stress: Not on file Relationships Social connections: Talks on phone: Not on file Gets together: Not on file Attends jewish service: Not on file Active member of club or organization: Not on file Attends meetings of clubs or organizations: Not on file Relationship status: Not on file Intimate partner violence: Fear of current or ex partner: Not on file Emotionally abused: Not on file Physically abused: Not on file Forced sexual activity: Not on file Other Topics Concerns: Not on file Social History Narrative Not on file I have reviewed the PMH, SH, FHX, ROS, MEDS, ALLERGIES and updated the computeri zed patient record appropriately. Physical Exam - BP 142/72 (BP Location: left arm, Patient Position: Sitting) | Pulse 60 | Ht 5 ' 5" (1.651 m) | Wt 224 lb (101.6 kg) | BMI 37.28 kg/m General Appearance: Alert, cooperative, no distress, appears stated age Head: Normocephalic, without obvious abnormality, atraumatic Eyes: PERRL, conjunctiva/corneas clear, EOM's intact, fundi Oral: Lips, mucosa, and tongue normal; teeth and gums normal Neck: Supple, symmetrical, trachea midline, no adenopathy; thyroid: No enlargement/tenderness/nodules; carotid Bruit absent JVD: Appears normal Back: Symmetric, no curvature Lungs: Clear to auscultation bilaterally, respirations unlabored Chest wall: No tenderness or deformity Heart: Regular rate and rhythm, S1S2 present or without murmur or extra heart sounds Abdomen: Soft, non-tender, bowel sounds active all four quadrants, no masses, no organomegaly Extremities: Extremities normal, atraumatic, no cyanosis or edema Peripheral Artery: Carotid, radial, femoral, popliteal, pedal. Normal Skin: Skin color, texture, turgor normal, no rashes or lesions Neurologic: CNII-XII intact. Normal strength, motor exam grossly intact; normal gait Other test results reviewed: ECG: A paced ,RBBB Assessment and Plan: Diagnoses and all orders for this visit: SVT (supraventricular tachycardia) (HCCode) - ELECTROCARDIOGRAM COMPLETE Nonrheumatic aortic valve stenosis Palpitations Coronary artery disease involving [place] coronary artery of [place] heart without angina pectoris Pacemaker Essential hypertension Bradycardia Syncope and collapse BMP today Watch BP closely Avoid diuretics if dizziness with change of position Chris Mendez MD documented in this encounter Plan of Treatment Date/Time Name Type Priority Associated Diagnoses 04/04/2019 ELECTROCARDIOGRAM ECG Routine SVT (supraventricular COMPLETE tachycardia) (HCCode) Health Maintenance Due Date Last Done Comments MEDICARE AWV 1935 TETANUS SHOT (ADULT) 1950 BMI FOLLOW UP PLAN 1953 FALL SCREEN 2000 OSTEOPOROSIS SCREENING 2000 PNEUMOVAX >=65 (PPSV23) 2000 PREVNAR >=65 (PCV13) 2000 FLU VACCINE > 6 MONTHS 02/09/2019 05/26/2017 documented as of this encounter Results Not on filedocumented in this encounter Visit Diagnoses Diagnosis SVT (supraventricular tachycardia) (HCCode) - Primary Other specified cardiac dysrhythmias Nonrheumatic aortic valve stenosis Aortic valve disorders Palpitations Coronary artery disease involving [place] coronary artery of [place] heart without angina pectoris Pacemaker Cardiac pacemaker in situ Essential hypertension Unspecified essential hypertension Bradycardia Other specified cardiac dysrhythmias Syncope and collapse documented in this encounter Insurance Type Payer Benefit Subscriber ID Effective Phone Address Plan / Dates Group Medicare AETNA MEDICARE xxxxxxxx 2018-P [address] PLAN PPO - resent [id number] [facility] [phone] documented as of this encounter
--- OUTSIDE RECORDS SUMMARY | 2019-04-05 11:59 | XMS REPORT | Clinical Summary ---
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
[2019-04-05 13:04] LABS: BASOPHILS # (AUTO) 0.1 (0.0-0.1); BASOPHILS % 0.3 % (0.0-1.0); EOSINOPHILS % 0.2 % (0.0-6.0); HEMATOCRIT 36.5 % (34.2-44.1); HEMOGLOBIN 12.2 g/dL (12.0-16.0); LYMPHOCYTES # (AUTO) 0.9 (1.0-3.2); LYMPHOCYTES % 5.1 % (18.0-39.1); MEAN CORPUSCULAR HEMOGLOBIN 30.6 pg (28-32); MEAN CORPUSCULAR HGB CONC 33.4 g/dL (31-35); MEAN CORPUSCULAR VOLUME 91.5 fL (81-99); MONOCYTES # (AUTO) 1.3 (0.2-0.8); MONOCYTES % 7.3 % (4.4-11.3); NEUTROPHILS # (AUTO) 15.4 (2.1-6.9); NEUTROPHILS % 86.6 % (38.7-80.0); PLATELET COUNT 310 x10e3/uL (140-360); RED BLOOD COUNT 3.99 x10e6/uL (3.6-5.1); RED CELL DISTRIBUTION WIDTH 13.9 % (11.7-14.4)
[2019-04-05 13:06] LABS: BILIRUBIN,URINE NEGATIVE (NEGATIVE); CLARITY,URINE CLEAR (CLEAR); COLOR,URINE YELLOW (YELLOW); KETONES,URINE NEGATIVE (NEGATIVE); LEUKOCYTE ESTERASE ,URINE LARGE (NEGATIVE); NITRITE,URINE POSITIVE (NEGATIVE); PROTEIN,URINE DIPSTICK TRACE (NEGATIVE); URINE UROBILINOGEN 0.2 mg/dL (0.2 - 1)
[2019-04-05 13:11] LABS: INR 0.91; PROTHROMBIN TIME 12.7 seconds (11.9-14.5)
[2019-04-05 13:12] LABS: PARTIAL THROMBOPLASTIN TIME 28.8 seconds (23.8-35.5)
--- NOTE | 2019-04-05 13:12 | Diagnostic Imaging Report ---
EXAMINATION: CHEST SINGLE (PORTABLE) INDICATION: Weakness COMPARISON: Chest radiograph of 02/25/2018 FINDINGS: LINES/TUBES:Unchanged left chest pacer. LUNGS:The lungs are moderately inflated. No focal consolidation or pulmonary edema. Mild subsegmental atelectasis at the left lung base. PLEURA:No pleural effusion or pneumothorax. MEDIASTINUM:The cardiomediastinal silhouette appears normal in size and shape. Atherosclerotic calcifications of the thoracic aorta. BONES/SOFT TISSUES:No acute osseous injury. ABDOMEN:No free air under the diaphragm. IMPRESSION: No focal pneumonia or pulmonary edema. Mild subsegmental atelectasis at the left lung base. Signed by: Marva Bell MD on 04/05/2019 1:09 PM
[2019-04-05 13:18] LABS: ALBUMIN 3.2 g/dL (3.5-5.0); ALBUMIN/GLOBULIN RATIO 0.9 (0.8-2.0); ANION GAP 14.7 mmol/L (8-16); BACTERIA,URINE RARE /HPF; CALCIUM 9.3 mg/dL (8.4-10.2); CREATININE, SERUM 1.24 mg/dL (0.57-1.11); EPITHELIAL CELLS,URINE FEW /LPF; POTASSIUM 3.7 mmol/L (3.5-5.1)
--- NOTE | 2019-04-05 13:25 | Diagnostic Imaging Report ---
Exam: Head CT without contrast History: Generalized weakness, dizziness Comparison studies: None Technique: Axial images were obtained from the skull base to the vertex. Coronal and sagittal images reconstructed from the axial data. Dose modulation, iterative reconstruction, and/or weight based adjustment of the mA/kV was utilized to reduce the radiation dose to as low as reasonably achievable. Radiation dose: Total DLP: 921 mGy*cm. Estimated effective dose: DLP x 0.015 Intravenous contrast: None Findings: Scalp: No abnormalities. Bones: No fractures, blastic or lytic lesions. Brain sulci: Mildly prominent. Ventricles: Mild compensatory dilatation.. No hydrocephalus. Extra-axial spaces: No masses, no fluid collection. Parenchyma: No abnormal densities. No masses, acute hemorrhage, acute or chronic vascular insults. Sellar/suprasellar region: No abnormalities. Craniocervical junction: Patent foramen magnum. No Chiari one malformation. Included para nasal sinuses: Clear. Middle ear and included mastoid cavities: Chronic inflammatory changes at the left mastoid tip. Middle ear and remaining mastoid cavities are clear. Incidental findings: Bilateral lens replacements related to previous cataract surgery. Atherosclerotic calcifications in the carotid siphons and intradural vertebral arteries. IMPRESSION: 1. No acute intracranial abnormalities. 2. Mild age-related generalized parenchymal volume loss. Signed by: Dr. Mracelo Emery M.D. on 04/05/2019 1:22 PM
[2019-04-05 13:39] LABS: CREATINE KINASE MB 3.9 ng/mL (0-5.0); THYROID STIMULATING HORMONE 3.434 uIU/mL (0.350-4.940)
[2019-04-05] MEDS ORDERED: CEFTRIAXONE SOD 1 GM VIAL IV SCH (14:15)
[2019-04-05] MEDS: CEFTRIAXONE SOD 1 GM/NS 50 ML 50 ML IV SCH (14:40)
[2019-04-05] MEDS ORDERED: ONDANSETRON HCL INJ 2MG/ML 2ML 2 MG/ML VIAL IV PRN (16:15)
[2019-04-05] MEDS ORDERED: SODIUM CHLORIDE 0.9% 1000ML 1,000 ML IV ONE (16:15)
[2019-04-05] MEDS: FAMOTIDINE 20 MG/2 ML VIAL IV SCH (16:57)
--- NOTE | 2019-04-05 21:10 | NUR ---
received pt from ER to room 204, AAOx4, no resp distress, no c/o pain or discomfort, at bedside, skin intact, bed in lowest and locked position and call light in reach
[2019-04-05 21:30] VITALS: BP 109/56
[2019-04-05 21:38] VITALS: BP 109/56
[2019-04-05] MEDS: HEPARIN SOD (PORCINE) 5,000 UNIT/ML VIAL SC SCH (22:25)
[2019-04-06] VITALS (8 sets, daily range): BP systolic 101–156; BP diastolic 55–85
[2019-04-06] MEDS: CEFTRIAXONE SOD 1 GM/NS 50 ML 50 ML IV SCH ×2 (01:57→15:10)
[2019-04-06 03:14] LABS: CREATINE KINASE MB 1.8 ng/mL (0-5.0)
[2019-04-06 05:06] LABS: BASOPHILS % 0.3 % (0.0-1.0); EOSINOPHILS # (AUTO) 0.1 (0.0-0.4); EOSINOPHILS % 1.2 % (0.0-6.0); HEMATOCRIT 36.6 % (34.2-44.1); HEMOGLOBIN 11.7 g/dL (12.0-16.0); LYMPHOCYTES # (AUTO) 1.9 (1.0-3.2); LYMPHOCYTES % 17.1 % (18.0-39.1); MEAN CORPUSCULAR HEMOGLOBIN 29.7 pg (28-32); MEAN CORPUSCULAR VOLUME 92.9 fL (81-99); MONOCYTES % 9.3 % (4.4-11.3); NEUTROPHILS # (AUTO) 7.8 (2.1-6.9); NEUTROPHILS % 71.7 % (38.7-80.0); PLATELET COUNT 271 x10e3/uL (140-360); RED BLOOD COUNT 3.94 x10e6/uL (3.6-5.1); RED CELL DISTRIBUTION WIDTH 13.8 % (11.7-14.4)
--- NOTE | 2019-04-06 05:18 | History and Physical ---
An 83-year-old female, who comes in with generalized weakness and dysuria. HISTORY OF PRESENTNG ILLNESS: This is Ms. Zambrano, who is an 83-year-old female with a history of urinary tract infection in the past, was in usual state of health until about a week ago. Three weeks ago, the patient started to have some burning urination and also had complains of pus in the urine. The patient did not mind it because she did not have any symptoms. The patient got generalized weakness, was almost had a near syncopal episode, came into the emergency room, was found to have UTI, and was admitted for the same and also renal insufficiency. PAST MEDICAL HISTORY: History of hypertension and history of colectomy in the past for bowel obstruction. PAST SURGICAL HISTORY: Include tonsillectomy, history of osteomyelitis, cholecystectomy, appendectomy, bladder suspension, bilateral cataract surgery, left knee replacement, hammertoe surgery, pacemaker and stent placement with ileostomy takedown in 2010. FAMILY HISTORY: Father with heart disease and stroke. Mother with Alzheimer disease. SOCIAL HISTORY: Never a smoker. No EtOH. No IV drug abuse. MEDICATIONS: She takes at home are: 1. Losartan/hydrochlorothiazide 100/25. 2. Lasix 40 mg. 3. Aspirin 81 mg. 4. Potassium chloride ER 20 mEq daily. 5. Metoprolol succinate 50 mg daily. ALLERGIES: NKDA. PHYSICAL EXAMINATION: VITAL SIGNS: Temperature 98.8, blood pressure is 97/59 initially on arrival, pulse oximetry of 93%. GENERAL: The patient is alert and oriented x3. HEENT: Normocephalic and atraumatic. Pupils are reactive to light and accommodation. CVS: S1, S2 normal. Regular rate and rhythm. ABDOMEN: Nontender, nondistended. EXTREMITIES: No clubbing, no cyanosis, no edema. ABDOMEN: With scar and also tenderness in the suprapubic area. LABORATORY VALUES: The patient's initial white count was 00950, neutrophil count was 86.6, lymphocytes was 0.9. Chemistries show a sodium of 137, potassium 3.7, BUN of 30, creatinine of 1.24. AST 27, ALT 17. The patient's urine shows positive nitrites, 6 to 10 rbc's, wbc's were 6 to 10. Coags were normal. The patient's microbiology is pending at this time. IMAGING STUDIES: Brain CT was done because of generalized weakness. The patient's brain CT shows no acute intracranial abnormalities, age-related generalized parenchymal volume loss. ASSESSMENT: An 83-year-old female with: 1. Urinary tract infection. 2. Urosepsis. 3. Dehydration. 4. Acute kidney injury. 5. History of pacemaker placement. 6. History of hypertension. 7. History of multiple abdominal surgeries in the past. PLAN: Would be to continue on IV hydration. The patient has been started on Rocephin 1 g daily. Labs will be repeated to monitor. Check CBC, CMP, and see a downtrend in her white count and also in her creatinine. We will hold back on her blood pressure medicines at this time because of low pressures. Further recommendation per clinical course. We are going to start back on her medications in the morning. We will continue to monitor the patient, will need physical therapy and rehabilitation assessment for her generalized weakness and we will continue to monitor the patient. MD JUAN Mejias/MODL /[id number]
[2019-04-06] MEDS: FAMOTIDINE 20 MG/2 ML VIAL IV SCH ×2 (05:21→18:00)
[2019-04-06 05:25] LABS: ALBUMIN 3.1 g/dL (3.5-5.0); ALBUMIN/GLOBULIN RATIO 0.9 (0.8-2.0); CALCIUM 9.1 mg/dL (8.4-10.2); CREATININE, SERUM 1.09 mg/dL (0.57-1.11)
[2019-04-06 05:41] LABS: CREATINE KINASE MB 1.7 ng/mL (0-5.0)
--- NOTE | 2019-04-06 06:40 | NUR ---
walking rounds made with night nurse, patient aware of change and in no distress. call castellanos within reach and bed in lowest position with at bedside.
[2019-04-06] MEDS ORDERED: POTASSIUM CHLORIDE 20 MEQ TAB CR PO ONE (08:00)
[2019-04-06] MEDS: HEPARIN SOD (PORCINE) 5,000 UNIT/ML VIAL SC SCH ×2 (08:45→21:13)
[2019-04-06] MEDS: HYDROCHLOROTHIAZIDE 25 MG TAB PO SCH (08:45)
[2019-04-06] MEDS: LOSARTAN POTASSIUM 100 MG TAB PO SCH (08:45)
[2019-04-06] MEDS: METOPROLOL SUCCINATE 25 MG TAB XL PO SCH (09:00)
[2019-04-06] MEDS ORDERED: SODIUM CHLORIDE 0.9% 250ML 250 ML ONE (15:14)
[2019-04-06 15:29] LABS: CREATINE KINASE MB 1.6 ng/mL (0-5.0)
--- NOTE | 2019-04-06 18:50 | Progress Note ---
DATE: SUBJECTIVE: The patient is an 83-year-old female, who comes in with urinary tract infection, fatigued, and also history of generalized malaise. The patient's urine culture has been positive. The patient is on Rocephin at this time. Feeling better. No chest pain. No shortness of breath. Abdominal pain is persistent and the patient is still wobbly on her feet. OBJECTIVE: VITAL SIGNS: Temperature is 97.7, pulse 61, respirations of 18, blood pressure is 101/55, pulse oximetry of 96%. The patient is on room air. HEENT: Normocephalic, atraumatic. Pupils are reactive to light and accommodation. CVS: S1, S2 normal. Regular rate and rhythm. ABDOMEN: Soft, nontender, nondistended. EXTREMITIES: No clubbing, no cyanosis, no edema. NEUROLOGICAL: Focally weak in all extremities and also in the legs. LABORATORY VALUES: Today's white count is 10,000 compared to 17,000 from yesterday. Neutrophil count is 71.7. The patient's chemistry show a sodium 138, potassium 3.0, which was replaced, BUN 25, creatinine 1.09. Coags are normal. Microbiology shows gram-negative bacillus. ASSESSMENT: An 83-year-old female with generalized debility with urinary tract infection. The patient is currently on Rocephin. Additional diagnoses include acute kidney injury, urosepsis. The patient also has history of pacemaker placement and history of hypertension. Continue CV medication. Replace potassium and check for microbiology status tomorrow. The patient can be possibly discharged tomorrow if he have ID of the microorganism. For further information, look into the chart. For medicines, look into the medical reconciliation sheet. MD JUAN Mejias/MODL /[id number]
--- NOTE | 2019-04-06 19:00 | NUR ---
RECEIVED PATIENT IN BEDSIDE REPORT. PATIENT RESTING IN BED AT THIS TIME. NO PAIN REPORTED. NO S&S OF DISTRESS NOTED. BED LOCKED IN LOWEST POSITION, SIDE RAILS UPX2, CALL LIGHT IN REACH.
--- NOTE | 2019-04-06 19:10 | NUR ---
walking rounds made with manufacturing supervisor 2nd shift, patient aware of change and in no distress, at bedside. call castellanos within reach and bed in lowest position.
[2019-04-07] VITALS: BP 103/55
[2019-04-07] MEDS: CEFTRIAXONE SOD 1 GM/NS 50 ML 50 ML IV SCH (03:23)
[2019-04-07 03:53] VITALS: BP 121/58
[2019-04-07] MEDS: FAMOTIDINE 20 MG/2 ML VIAL IV SCH (06:00)
--- NOTE | 2019-04-07 07:00 | NUR ---
SPOKE WITH MD ALFRED CONCERNING LAB RESULTS OF URINE CULTURE. NO NEW ORDERS RECEIVED.
--- NOTE | 2019-04-07 07:00 | NUR ---
BEDSIDE SHIFT REPORT RECEIVED FROM THE COMPOSITE ENGINEER RN. EDUCATED PT ABOUT FALL PRECAUTIONS. PT VERBALIZED UNDERSTANDING. CALL LIGHT WITH IN EASY REACH. BED IS LOCKED. FAMILY MEMBER AT BEDSIDE. PT DENIES NEEDS AT THIS TIME.
--- NOTE | 2019-04-07 07:30 | NUR ---
D/C PT PER DR. ALFRED.
[2019-04-07] MEDS: LOSARTAN POTASSIUM 100 MG TAB PO SCH (08:10)
[2019-04-07] MEDS: HYDROCHLOROTHIAZIDE 25 MG TAB PO SCH (08:10)
[2019-04-07] MEDS: METOPROLOL SUCCINATE 25 MG TAB XL PO SCH (08:11)
[2019-04-07 08:39] VITALS: BP 152/67
[2019-04-07 08:45] VITALS: BP 152/67
[2019-04-07] MEDS: HEPARIN SOD (PORCINE) 5,000 UNIT/ML VIAL SC SCH (09:00)
[2019-04-07] MEDS ORDERED: CIPRO500 MG PO (09:17)
--- NOTE | 2019-04-07 09:35 | NUR ---
PT DISCHARGED HOME SAFELY WITH . PT ESCORTED VIA WHEEL CHAIR TO THE FRONT ENTRANCE. IV REMOVED. TIP INTACT. DRESSING APPLIED. PT DENIED FURTHER NEEDS.
--- NOTE | 2019-04-07 10:49 | Progress Note ---
DATE: SUBJECTIVE: This patient came in with generalized weakness, tiredness, and urinary tract infection. Urine culture has grown gram-negative bacilli, pending ID still. The patient is currently on Rocephin, feeling much better. No chest pain or shortness of breath. No nausea, vomiting, or diarrhea. No constipation. No rectal bleeding. The patient has been walking to the bathroom without any difficulty and with some help from the . OBJECTIVE: VITAL SIGNS: Temperature is 97.7, pulse of 62, respirations 16, blood pressure is 121/58, and pulse oximetry of 97%. HEENT: Normocephalic and atraumatic. Pupils are reactive to light and accommodation. CVS: S1 and S2 normal. Regular rate and rhythm. ABDOMEN: Nontender and nondistended. EXTREMITIES: No clubbing, no cyanosis, and no edema. LABORATORY VALUES: None done today. Microbiology, gram-negative bacilli identified . MEDICATIONS: The patient takes: 1. Famotidine. 2. Rocephin. 3. Heparin for DVT prophylaxis. 4. Losartan. 5. Metoprolol. 6. Ondansetron. ASSESSMENT: An 83-year-old female with: 1. Urinary tract infection. 2. Debility. 3. Hypertension. 4. History of pacemaker. 5. Hyperkalemia. The patient can be discharged today depending on the ID of the microorganism. PLAN: Continue on Rocephin. Possible discharge later in the evening when ID . MD JUAN Mejias/SIMRANL /[id number]
== END 2019-04-07 09:36 | disposition home or self-care (01) | DRG 872 ==
LOC: ER 11:32 → ERHOLD 16:37 → MED/SURG2 20:48
PROVIDERS: ADMIT Family Medicine; ATTEND Family Medicine
DX: A41.9 Sepsis, unspecified organism (principal); N39.0 Urinary tract infection, site not specified; N17.9 Acute kidney failure, unspecified; E86.0 Dehydration; Z95.0 Presence of cardiac pacemaker; I10 Essential (primary) hypertension; R53.81 Other malaise
CPT/HCPCS: 36415; 70450; 71045; 80053; 81001; 82550; 82553; 83880; 84443; 84484; 85025; 85610; 85730; 87040; 87086; 87186; 93005; 99284; J0696; J1644; J7030; J7050

== ENCOUNTER 2021-01-01 17:20 | Emergency (ER) | payer MEDICARE ==
[~2021-01-01] VITALS: Ht 165.1 cm; Wt 101.6 kg
[~2021-01-01 17:20] MED LIST changes: +CIPRO500 MG PO
[2021-01-01] MEDS ORDERED: METOPROLOL TARTRATE INJ 1 MG/ML VIAL IV ONE (17:45)
[2021-01-01 17:59] LABS: BASOPHILS % 0.4 % (0.0-1.0); EOSINOPHILS # (AUTO) 0.1 (0.0-0.4); EOSINOPHILS % 0.8 % (0.0-6.0); HEMATOCRIT 38.6 % (34.2-44.1); HEMOGLOBIN 12.1 g/dL (12.0-16.0); LYMPHOCYTES # (AUTO) 1.5 (1.0-3.2); LYMPHOCYTES % 19.2 % (18.0-39.1); MEAN CORPUSCULAR HEMOGLOBIN 29.7 pg (28-32); MEAN CORPUSCULAR HGB CONC 31.3 g/dL (31-35); MEAN CORPUSCULAR VOLUME 94.8 fL (81-99); MONOCYTES # (AUTO) 0.7 (0.2-0.8); MONOCYTES % 8.9 % (4.4-11.3); NEUTROPHILS # (AUTO) 5.3 (2.1-6.9); PLATELET COUNT 304 x10e3/uL (140-360); RED BLOOD COUNT 4.07 x10e6/uL (3.6-5.1); RED CELL DISTRIBUTION WIDTH 13.6 % (11.7-14.4)
[2021-01-01 18:06] LABS: INR 0.98; PROTHROMBIN TIME 13.6 seconds (11.9-14.5)
[2021-01-01 18:07] LABS: PARTIAL THROMBOPLASTIN TIME 29.7 seconds (23.8-35.5)
[2021-01-01 18:13] LABS: ALBUMIN 3.6 g/dL (3.5-5.0); ANION GAP 15.2 mmol/L (8-16); CALCIUM 8.4 mg/dL (8.4-10.2); CREATININE, SERUM 1.26 mg/dL (0.57-1.11); POTASSIUM 4.2 mmol/L (3.5-5.1)
[2021-01-01] MEDS ORDERED: LEVOTHYROXINE50 MCG PO (18:13)
[2021-01-01] MEDS ORDERED: MYSOLINE50 MG (18:14)
[2021-01-01] MEDS ORDERED: AMIODARONE HCL200 MG PO (18:14)
[2021-01-01] MEDS ORDERED: BIOTIN2500 MCG (18:15)
[2021-01-01 18:20] LABS: CREATINE KINASE MB 7.5 ng/mL (0-5.0)
[2021-01-01 20:16] LABS: CLARITY,URINE SL CLOUDY (CLEAR); COLOR,URINE YELLOW (YELLOW); KETONES,URINE NEGATIVE (NEGATIVE); LEUKOCYTE ESTERASE ,URINE TRACE (NEGATIVE); NITRITE,URINE NEGATIVE (NEGATIVE); PROTEIN,URINE DIPSTICK 1+ (NEGATIVE); URINE UROBILINOGEN 0.2 mg/dL (0.2 - 1)
[2021-01-01 20:19] VITALS: BP 146/78
[2021-01-01 20:30] LABS: BACTERIA,URINE FEW /HPF; EPITHELIAL CELLS,URINE MANY /LPF; TRANSITIONAL EPI CELLS,URINE MODERATE; WBC,URINE (MAN) 0-5 /HPF (0-5)
== END 2021-01-01 20:20 | disposition home or self-care (01) ==
LOC: ER 17:58
DX: M54.2 Cervicalgia (principal); R06.00 Dyspnea, unspecified; I48.20 Chronic atrial fibrillation, unspecified
CPT/HCPCS: 36415; 71045; 80053; 81001; 82550; 82553; 83880; 84484; 85025; 85610; 85730; 93005; 99284

== ENCOUNTER → 2021-09-30 | Outpatient (CLI) | payer MEDICARE ==
[~2021-09-30] MED LIST changes: +AMIODARONE HCL200 MG PO; +BIOTIN2500 MCG; +LEVOTHYROXINE50 MCG PO; +MYSOLINE50 MG
== END ==
LOC: RAD 13:58
PROVIDERS: ATTEND Family Medicine
DX: R60.0 Localized edema (principal)
CPT/HCPCS: 93971

== ENCOUNTER 2021-10-21 15:41 | Emergency (ER) | payer MEDICARE, OTHER ==
[~2021-10-21] VITALS: Ht 165.1 cm; Wt 101.6 kg
[2021-10-21 17:40] LABS: BASOPHILS # (AUTO) 0.1 (0.0-0.1); BASOPHILS % 0.7 % (0.0-1.0); EOSINOPHILS # (AUTO) 0.1 (0.0-0.4); EOSINOPHILS % 1.3 % (0.0-6.0); HEMOGLOBIN 12.8 g/dL (12.0-16.0); LYMPHOCYTES # (AUTO) 1.6 (1.0-3.2); LYMPHOCYTES % 18.5 % (18.0-39.1); MEAN CORPUSCULAR HEMOGLOBIN 31.1 pg (28-32); MEAN CORPUSCULAR VOLUME 97.3 fL (81-99); MONOCYTES # (AUTO) 0.7 (0.2-0.8); MONOCYTES % 8.3 % (4.4-11.3); NEUTROPHILS # (AUTO) 6.2 (2.1-6.9); NEUTROPHILS % 70.7 % (38.7-80.0); PLATELET COUNT 259 x10e3/uL (140-360); RED BLOOD COUNT 4.11 x10e6/uL (3.6-5.1); RED CELL DISTRIBUTION WIDTH 13.7 % (11.7-14.4)
[2021-10-21 17:54] LABS: ANION GAP 14.7 mmol/L (8-16); CALCIUM 9.1 mg/dL (8.4-10.2); CREATININE, SERUM 0.98 mg/dL (0.57-1.11); POTASSIUM 4.7 mmol/L (3.5-5.1)
== END 2021-10-21 19:37 | disposition home or self-care (01) ==
LOC: ER 15:50
DX: S80.212A Abrasion, left knee, initial encounter (principal); S80.211A Abrasion, right knee, initial encounter; W01.0XXA Fall on same level from slipping, tripping and stumbling without subsequent striking against object, initial encounter; Y93.01 Activity, walking, marching and hiking; Y92.89 Other specified places as the place of occurrence of the external cause; I10 Essential (primary) hypertension; I50.9 Heart failure, unspecified; I48.91 Unspecified atrial fibrillation; I25.10 Atherosclerotic heart disease of native coronary artery without angina pectoris
CPT/HCPCS: 36415; 80048; 85025; 99283

== ENCOUNTER → 2021-10-30 | Outpatient (CLI) | payer MEDICARE ==
[~2021-10-30] MED LIST changes: +DIATRIZOATE MEGL/DIATRIZOA SOD 30 ML BTL PO ONE; +IOPAMIDOL 370 MG/ML 100 ML INFUS..BTL INJ ONE; +SODIUM CHLORIDE 0.9% 500ML 500 ML ONE
[2021-10-30 14:26] LABS: CREATININE, SERUM 0.95 mg/dL (0.57-1.11)
== END ==
LOC: CT 13:30
PROVIDERS: ATTEND Family Medicine
DX: R10.0 Acute abdomen (principal)
CPT/HCPCS: 36415; 74177; 82565; 84520; 96360; J7040; Q9967

== ENCOUNTER 2022-09-19 11:52 | Inpatient (IN) | payer MEDICARE ==
[~2022-09-19] VITALS: Ht 165.1 cm; Wt 101.6 kg
[~2022-09-19 11:52] MED LIST changes: -DIATRIZOATE MEGL/DIATRIZOA SOD 30 ML BTL PO ONE; -IOPAMIDOL 370 MG/ML 100 ML INFUS..BTL INJ ONE; -SODIUM CHLORIDE 0.9% 500ML 500 ML ONE
[2022-09-19 12:33] LABS: BASOPHILS % 0.4 % (0.0-1.0); EOSINOPHILS # (AUTO) 0.1 (0.0-0.4); HEMATOCRIT 36.5 % (34.2-44.1); HEMOGLOBIN 11.4 g/dL (12.0-16.0); LYMPHOCYTES # (AUTO) 1.5 (1.0-3.2); LYMPHOCYTES % 17.8 % (18.0-39.1); MEAN CORPUSCULAR HEMOGLOBIN 30.3 pg (28-32); MEAN CORPUSCULAR HGB CONC 31.2 g/dL (31-35); MEAN CORPUSCULAR VOLUME 97.1 fL (81-99); MONOCYTES # (AUTO) 0.6 (0.2-0.8); MONOCYTES % 7.6 % (4.4-11.3); NEUTROPHILS % 72.7 % (38.7-80.0); PLATELET COUNT 280 x10e3/uL (140-360); RED BLOOD COUNT 3.76 x10e6/uL (3.6-5.1); RED CELL DISTRIBUTION WIDTH 13.8 % (11.7-14.4)
[2022-09-19 13:06] LABS: ALBUMIN 3.4 g/dL (3.5-5.0); ALBUMIN/GLOBULIN RATIO 0.9 (0.8-2.0); ANION GAP 14.2 mmol/L (8-16); CALCIUM 8.6 mg/dL (8.4-10.2); CREATININE, SERUM 1.23 mg/dL (0.57-1.11); POTASSIUM 3.2 mmol/L (3.5-5.1)
[2022-09-19 13:15] LABS: CREATINE KINASE MB 2.4 ng/mL (0-5.0)
[2022-09-19] MEDS ORDERED: ASPIRIN 81 MG CHEW TAB PO ONE (13:45)
[2022-09-19] MEDS ORDERED: FUROSEMIDE INJ 10 MG/ML 4 ML VIAL IV ONE (14:00)
[2022-09-19 16:00] VITALS: BP 130/90
[2022-09-19 16:10] VITALS: BP 130/90
[2022-09-19 16:21] VITALS: BP 130/90
[2022-09-19] MEDS ORDERED: XARELTO20 MG PO (17:26)
[2022-09-19] MEDS ORDERED: SPIRONOLACTONE25 MG PO (17:32)
[2022-09-19] MEDS ORDERED: ASPIRIN81 MG PO (17:32)
[2022-09-19] MEDS ORDERED: METOPROLOL SUCC50 MG PO (17:32)
[2022-09-19] MEDS ORDERED: LOSARTAN POTASS25 MG PO (17:32)
[2022-09-19] MEDS ORDERED: POTASSIUM CHLORIDE 20 MEQ TAB CR PO STA (17:44)
[2022-09-19] MEDS ORDERED: Losartan PO (17:51)
[2022-09-19] MEDS: FUROSEMIDE INJ 10 MG/ML 4 ML VIAL IV SCH (20:35)
[2022-09-19 21:57] VITALS: BP 149/99
[2022-09-19 22:00] LABS: CREATINE KINASE MB 2.5 ng/mL (0-5.0)
[2022-09-19 23:03] VITALS: BP 149/99
[2022-09-20] VITALS (8 sets, daily range): BP systolic 119–160; BP diastolic 85–116
[2022-09-20] MEDS ORDERED: CLONIDINE HCL 0.1 MG TAB PO PRN (01:45)
[2022-09-20 05:36] LABS: BASOPHILS % 0.6 % (0.0-1.0); EOSINOPHILS # (AUTO) 0.1 (0.0-0.4); EOSINOPHILS % 1.9 % (0.0-6.0); HEMATOCRIT 39.5 % (34.2-44.1); HEMOGLOBIN 12.2 g/dL (12.0-16.0); LYMPHOCYTES # (AUTO) 1.6 (1.0-3.2); LYMPHOCYTES % 25.5 % (18.0-39.1); MEAN CORPUSCULAR HEMOGLOBIN 30.8 pg (28-32); MEAN CORPUSCULAR HGB CONC 30.9 g/dL (31-35); MEAN CORPUSCULAR VOLUME 99.7 fL (81-99); MONOCYTES # (AUTO) 0.6 (0.2-0.8); MONOCYTES % 9.5 % (4.4-11.3); NEUTROPHILS # (AUTO) 3.9 (2.1-6.9); NEUTROPHILS % 62.2 % (38.7-80.0); PLATELET COUNT 226 x10e3/uL (140-360); RED BLOOD COUNT 3.96 x10e6/uL (3.6-5.1); RED CELL DISTRIBUTION WIDTH 13.7 % (11.7-14.4)
[2022-09-20 06:03] LABS: ANION GAP 16.4 mmol/L (8-16); CALCIUM 8.7 mg/dL (8.4-10.2); CREATININE, SERUM 1.27 mg/dL (0.57-1.11); POTASSIUM 3.4 mmol/L (3.5-5.1)
[2022-09-20 06:11] LABS: CREATINE KINASE MB 2.1 ng/mL (0-5.0)
[2022-09-20] MEDS: AMIODARONE HCL 200 MG TAB PO SCH (09:00)
[2022-09-20] MEDS: ASPIRIN 81 MG CHEW TAB PO SCH (09:00)
[2022-09-20] MEDS: FUROSEMIDE INJ 10 MG/ML 4 ML VIAL IV SCH ×2 (09:00→21:10)
[2022-09-20] MEDS ORDERED: RIVAROXABAN 20 MG TABLET PO SCH (09:00)
[2022-09-20] MEDS ORDERED: METOPROLOL SUCCINATE 50 MG TAB XL PO SCH (09:00)
[2022-09-20] MEDS: SPIRONOLACTONE 25 MG TAB PO SCH (09:00)
[2022-09-20] MEDS: METOPROLOL SUCCINATE 50 MG TAB XL PO SCH (09:43)
[2022-09-20] MEDS ORDERED: POTASSIUM CHLORIDE 20 MEQ TAB CR PO STA (11:33)
[2022-09-20] MEDS: RIVAROXABAN 20 MG TABLET PO SCH (15:57)
[2022-09-21] VITALS: BP 137/99
[2022-09-21 04:32] VITALS: BP 119/91
[2022-09-21 08:00] VITALS: BP 141/90
[2022-09-21 08:39] VITALS: BP 141/90
[2022-09-21] MEDS: FUROSEMIDE INJ 10 MG/ML 4 ML VIAL IV SCH (08:53)
[2022-09-21] MEDS: AMIODARONE HCL 200 MG TAB PO SCH (08:54)
[2022-09-21] MEDS: METOPROLOL SUCCINATE 50 MG TAB XL PO SCH (08:54)
[2022-09-21] MEDS: SPIRONOLACTONE 25 MG TAB PO SCH (08:54)
[2022-09-21] MEDS: ASPIRIN 81 MG CHEW TAB PO SCH (08:54)
[2022-09-21 09:39] LABS: ANION GAP 14.6 mmol/L (8-16); CALCIUM 8.4 mg/dL (8.4-10.2); CREATININE, SERUM 1.43 mg/dL (0.57-1.11); POTASSIUM 3.6 mmol/L (3.5-5.1)
[2022-09-21] MEDS ORDERED: POTASSIUM CHLORIDE 20 MEQ TAB CR PO ONE (10:30)
[2022-09-21 12:00] VITALS: BP 165/61
[2022-09-21 14:32] LABS: ANION GAP 14.1 mmol/L (8-16); CALCIUM 8.4 mg/dL (8.4-10.2); CREATININE, SERUM 1.54 mg/dL (0.57-1.11); POTASSIUM 4.1 mmol/L (3.5-5.1)
[2022-09-21] MEDS ORDERED: METOPROLOL SUCCINATE 50 MG TAB XL PO SCH (17:00)
[2022-09-21 17:05] VITALS: BP 124/57
[2022-09-21] MEDS: RIVAROXABAN 20 MG TABLET PO SCH (17:35)
[2022-09-22] MEDS ORDERED: METOPROLOL SUCCINATE 50 MG TAB XL PO SCH (09:00)
[2022-09-22] MEDS ORDERED: FUROSEMIDE 40 MG TAB PO SCH (09:00)
== END 2022-09-21 18:13 | disposition home or self-care (01) | DRG 293 ==
LOC: ER 12:02 → ERHOLD 13:34 → MED/SURG 16:00 → OBSVTOIN 09-21 16:10
PROVIDERS: ADMIT Internal Medicine; ATTEND Internal Medicine
DX: I13.0 Hypertensive heart and chronic kidney disease with heart failure and stage 1 through stage 4 chronic kidney disease, or unspecified chronic kidney disease (principal); I50.9 Heart failure, unspecified; I25.10 Atherosclerotic heart disease of native coronary artery without angina pectoris; M19.90 Unspecified osteoarthritis, unspecified site; I48.91 Unspecified atrial fibrillation; E87.6 Hypokalemia; N18.30 Chronic kidney disease, stage 3 unspecified; E66.01 Morbid (severe) obesity due to excess calories; Z68.37 Body mass index [BMI] 37.0-37.9, adult; Z20.822 Contact with and (suspected) exposure to COVID-19; Z95.2 Presence of prosthetic heart valve; Z96.659 Presence of unspecified artificial knee joint; Z95.810 Presence of automatic (implantable) cardiac defibrillator; Z90.49 Acquired absence of other specified parts of digestive tract; Z95.5 Presence of coronary angioplasty implant and graft
CPT/HCPCS: 36415; 71045; 80048; 80053; 82550; 82553; 83880; 84484; 85025; 93005; 93306; 93971; 94799; 99285; G0378; J1940

== ENCOUNTER → 2024-10-23 | Outpatient (REF) | payer MEDICARE ==
[~2024-10-23] MED LIST changes: +ASPIRIN81 MG PO; +IOPAMIDOL 370 MG/ML 100 ML INFUS..BTL INJ ONE; +LOSARTAN POTASS25 MG PO; +Losartan PO; +SODIUM CHLORIDE 0.9% 500ML 500 ML ONE; +SPIRONOLACTONE25 MG PO; +XARELTO20 MG PO
[2024-10-23 15:13] LABS: CREATININE, SERUM 1.43 mg/dL (0.57-1.11)
== END ==
LOC: CT 13:53
PROVIDERS: ATTEND Family Medicine
DX: R10.32 Left lower quadrant pain (principal)
CPT/HCPCS: 36415; 74177; 82565; 84520; 96360; J7040; Q9967